=== PATIENT | male | born 1990 | race Caucasian/White ===

== ENCOUNTER → 2017-01-13 | Day surgery (SDC) | payer OTHER ==
[2017-01-13 09:15] LABS: CREATININE 0.7 mg/dL (0.7-1.2); POTASSIUM 4.1 mmol/L (3.5-5.1)
== END | disposition home or self-care (01) ==
LOC: FAS 08:41
PROVIDERS: Surgery
DX: K92.1 Melena (principal); J30.9 Allergic rhinitis, unspecified; G89.29 Other chronic pain; I10 Essential (primary) hypertension; R56.9 Unspecified convulsions; F17.210 Nicotine dependence, cigarettes, uncomplicated
CPT/HCPCS: 36415; 80048; J2704

== ENCOUNTER 2021-02-04 07:38 | Emergency (ER) | payer OTHER ==
[2021-02-04] MEDS ORDERED: IBUPROFEN800 MG PO (08:03)
[2021-02-04] MEDS ORDERED: PENICILLIN V P500 MG PO (08:03)
== END 2021-02-04 08:40 | disposition home or self-care (01) ==
LOC: FER 07:38
DX: K04.7 Periapical abscess without sinus (principal); K03.81 Cracked tooth
CPT/HCPCS: 99283; J1885; Q0163

== ENCOUNTER 2021-03-09 15:44 | Emergency (ER) | payer OTHER ==
[~2021-03-09 15:44] MED LIST: IBUPROFEN800 MG PO; PENICILLIN V P500 MG PO
[2021-03-09] MEDS ORDERED: HYDROCODON-ACE1 EAC2 PO (17:45)
== END 2021-03-09 18:08 | disposition left against medical advice (07) ==
LOC: FER 15:44
DX: S02.832A Fracture of medial orbital wall, left side, initial encounter for closed fracture (principal); S02.2XXA Fracture of nasal bones, initial encounter for closed fracture; H54.7 Unspecified visual loss; Y04.2XXA Assault by strike against or bumped into by another person, initial encounter; Y92.410 Unspecified street and highway as the place of occurrence of the external cause; Z23 Encounter for immunization
CPT/HCPCS: 70486; 90471; 90715; J1885

== ENCOUNTER 2021-03-22 10:01 | Inpatient (IN) | payer OTHER ==
[~2021-03-22] VITALS: Ht 190.5 cm; Wt 117.3 kg
[~2021-03-22 10:01] MED LIST changes: +HYDROCODON-ACE1 EAC2 PO
[2021-03-22 10:46] LABS: BASOPHIL 0.3 % (0-2); EOSINOPHIL 1.2 % (0-5); HCT 43.2 % (42.0-52.0); HGB 15.8 g/dl (13.2-18.0); MCH 31.9 pg (25.0-31.0); MCHC 36.6 g/dL (32.0-36.0); MCV 87.3 fL (78.0-100.0); MONOCYTE 11.1 % (0-12); MPV 10.3 fL (6.0-9.5); NEUTROPHIL 75.2 % (41-80); NRBC 0; PLT 270 K/uL (150-400); RBC 4.95 M/uL (4.70-6.00); RDW 12.5 % (11.5-14.0); WBC 11.7 K/uL (4.0-10.5)
[2021-03-22 11:02] LABS: BILIRUBIN NEGATIVE (NEGATIVE); BLOOD TRACE-INTACT Ery/uL (NEGATIVE); CLARITY CLEAR (CLEAR); COLOR YELLOW (YELLOW); GLUCOSE (U) NORMAL (NORMAL); LEUKOCYTES NEGATIVE Leu/uL (NEGATIVE); NITRITE NEGATIVE (NEGATIVE); PROTEIN NEGATIVE (NEGATIVE); UROBILINOGEN 0.2 mg/dL (0.2-1.0); pH 5.5 (5.0-9.0)
[2021-03-22 11:05] LABS: ALBUMIN 4.4 g/dL (3.4-5.0); BILIRUBIN - TOTAL 0.6 mg/dL (0.2-1.0); BUN/CREAT RATIO (CALC) 14.6 RATIO; CREATININE 3.28 mg/dL (0.67-1.17); GLOBULIN (CALCULATION) 3.9 g/dL; POTASSIUM 3.9 mmol/L (3.5-5.1); TOTAL PROTEIN 8.3 g/dL (6.4-8.2)
[2021-03-22 11:14] LABS: URINARY RBC RARE
[2021-03-22 11:52] LABS: CORONAVIRUS 2019 SARS-COV-2 NEGATIVE (NEGATIVE); INFLUENZA A NAA NEGATIVE (NEGATIVE)
[2021-03-22] MEDS ORDERED: DEPAKOTE ER250 MG PO (15:58)
[2021-03-22 16:35] LABS: MAGNESIUM 2.6 mg/dL (1.8-2.4); PHOSPHORUS 3.9 mg/dL (2.6-4.7)
[2021-03-22 17:26] LABS: URINE CREATININE 140.61 mg/dL (29.00-226.00); URINE TOTAL PROTEIN-RANDOM 19.3 mg/dL (<11.9)
[2021-03-23 05:37] LABS: BASOPHIL 0.3 % (0-2); EOSINOPHIL 2.3 % (0-5); HCT 35.8 % (42.0-52.0); HGB 12.8 g/dl (13.2-18.0); LYMPHOCYTE 17.4 % (15-48); MCH 31.8 pg (25.0-31.0); MCHC 35.8 g/dL (32.0-36.0); MCV 89.1 fL (78.0-100.0); MONOCYTE 11.7 % (0-12); MPV 10.4 fL (6.0-9.5); NRBC 0; PLT 207 K/uL (150-400); RBC 4.02 M/uL (4.70-6.00); RDW 12.5 % (11.5-14.0); WBC 9.4 K/uL (4.0-10.5)
[2021-03-23 05:52] LABS: BUN/CREAT RATIO (CALC) 13.8 RATIO; CREATININE 2.25 mg/dL (0.67-1.17)
[2021-03-23 10:42] LABS: IRON % SATURATION 28.9 %SAT (20-50)
--- NOTE | 2021-03-23 10:46 | NUR ---
[facility] CALLED AT 0810 - PATIENT HAVING A SEIZURE, LAST 5 MIN. PATIENT WAS SUCTIONED. SEIZURE PADS WERE ALREADY IN PLACE. PATIENT WAS VERY LETHARGIC, DIAPHRADIC, RIDGED, FOAMING TO THE MOUTH. PATIENT WAS GIVEN ATIVAN 1MG @ 0833 AND 0841 [facility] CALLED @ 1034, SUCTION, PATIENT EVERY RIDGED AND LETHARGIC, ATIVAN GIVEN AT 1036 PATIENT TO BE TRANSFERED TO TCU 205
[2021-03-23 11:07] LABS: ALBUMIN 3.6 g/dL (3.4-5.0); BILIRUBIN - TOTAL 0.6 mg/dL (0.2-1.0); BUN/CREAT RATIO (CALC) 14.5 RATIO; CREATININE 1.86 mg/dL (0.67-1.17); DEPAKENE/VALPROIC ACID 73.7 ug/mL (50.0-100.0); GLOBULIN (CALCULATION) 3.2 g/dL; MAGNESIUM 2.1 mg/dL (1.8-2.4); PHOSPHORUS 2.7 mg/dL (2.6-4.7); POTASSIUM 3.6 mmol/L (3.5-5.1); TOTAL PROTEIN 6.8 g/dL (6.4-8.2)
[2021-03-23 11:12] LABS: HCT 36.2 % (42.0-52.0); HGB 12.9 g/dl (13.2-18.0); MCH 31.7 pg (25.0-31.0); MCHC 35.6 g/dL (32.0-36.0); MCV 88.9 fL (78.0-100.0); MPV 10.8 fL (6.0-9.5); RBC 4.07 M/uL (4.70-6.00); RDW 12.5 % (11.5-14.0); WBC 9.4 K/uL (4.0-10.5)
--- NOTE | 2021-03-23 14:42 | NUR ---
MD AND RN AT BEDSIDE AFTER CALLING OUT FOR HELP. 1MG OF ATIVAN GIVEN PER MD ORDER. PT VITAL SIGNS STABLE. WILL CONTINUE TO MONITOR
[2021-03-24 05:54] LABS: BASOPHIL 0.6 % (0-2); EOSINOPHIL 3.7 % (0-5); HCT 33.7 % (42.0-52.0); LYMPHOCYTE 25.6 % (15-48); MCH 32.2 pg (25.0-31.0); MCHC 35.6 g/dL (32.0-36.0); MCV 90.3 fL (78.0-100.0); MPV 10.6 fL (6.0-9.5); NRBC 0; PLT 202 K/uL (150-400); RBC 3.73 M/uL (4.70-6.00); RDW 12.5 % (11.5-14.0); WBC 6.8 K/uL (4.0-10.5)
[2021-03-24 07:17] LABS: ALBUMIN 3.1 g/dL (3.4-5.0); BILIRUBIN - TOTAL 0.5 mg/dL (0.2-1.0); BUN/CREAT RATIO (CALC) 12.2 RATIO; CREATININE 1.39 mg/dL (0.67-1.17); DEPAKENE/VALPROIC ACID 82.5 ug/mL (50.0-100.0); GLOBULIN (CALCULATION) 2.7 g/dL; MAGNESIUM 1.9 mg/dL (1.8-2.4); PHOSPHORUS 2.6 mg/dL (2.6-4.7); POTASSIUM 3.9 mmol/L (3.5-5.1); TOTAL PROTEIN 5.8 g/dL (6.4-8.2)
[2021-03-24 13:25] LABS: BILIRUBIN NEGATIVE (NEGATIVE); BLOOD NEGATIVE Ery/uL (NEGATIVE); CLARITY CLEAR (CLEAR); COLOR YELLOW (YELLOW); GLUCOSE (U) NORMAL (NORMAL); LEUKOCYTES NEGATIVE Leu/uL (NEGATIVE); NITRITE NEGATIVE (NEGATIVE); PROTEIN NEGATIVE (NEGATIVE); UROBILINOGEN 0.2 mg/dL (0.2-1.0)
--- NOTE | 2021-03-24 16:08 | NUR ---
03/24/21 Mr. Sorto shares a subsidized rent apartment with his girlfriend, Ro Quiroga. They are supported by the girlfriend's child support and foodstamps. Ms. Quiroga works at times. - Mr. Sorto does not take his medications as prescribed. He reports the pills to be difficult to swallow. Therefore he smokes marijuana opposed to taking the prescribed medications. Mr. Sorto reports his neurologist to beaware of his marijuana use. Mr. Sorto requested information re: SSD. He has not worked the 40 quarters required for SSD eligibility. Mr. 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 He was referred to [employer] to apply for SSI.
--- NOTE | 2021-03-24 18:38 | NUR ---
NOTIFIED OF BLOOD PRESSURE 175/107 AND RN RECHECK OF 154/95 MAP 110 HR 88, NO PRN MED ORDERED. NO NEW ORDERS AT THIS TIME
[2021-03-25 05:57] LABS: BASOPHIL 0.5 % (0-2); EOSINOPHIL 3.9 % (0-5); HCT 33.1 % (42.0-52.0); HGB 11.7 g/dl (13.2-18.0); LYMPHOCYTE 32.3 % (15-48); MCH 31.9 pg (25.0-31.0); MCHC 35.3 g/dL (32.0-36.0); MCV 90.2 fL (78.0-100.0); MONOCYTE 9.5 % (0-12); MPV 10.7 fL (6.0-9.5); NEUTROPHIL 53.7 % (41-80); NRBC 0; PLT 195 K/uL (150-400); RBC 3.67 M/uL (4.70-6.00); RDW 12.3 % (11.5-14.0); WBC 7.5 K/uL (4.0-10.5)
[2021-03-25 06:29] LABS: ALBUMIN 3.2 g/dL (3.4-5.0); BILIRUBIN - TOTAL 0.4 mg/dL (0.2-1.0); BUN/CREAT RATIO (CALC) 11.7 RATIO; CREATININE 1.03 mg/dL (0.67-1.17); GLOBULIN (CALCULATION) 2.9 g/dL; POTASSIUM 3.7 mmol/L (3.5-5.1); TOTAL PROTEIN 6.1 g/dL (6.4-8.2)
--- NOTE | 2021-03-25 09:54 | NUR ---
PT HAS BEEN SIEZURE FREE FOR OVER 24 HOURS
[2021-03-25] MEDS ORDERED: NORVASC5 MG PO (10:31)
[2021-03-25] MEDS ORDERED: DEPAKOTE ER250 MG PO (10:31)
== END 2021-03-25 12:20 | disposition home or self-care (01) | DRG 682 ==
LOC: FER 10:01 → FMS 15:03 → FTCU 18:31
PROVIDERS: Emergency Medicine; Internal Medicine; ADMIT Internal Medicine
DX: N17.9 Acute kidney failure, unspecified (principal); K85.90 Acute pancreatitis without necrosis or infection, unspecified; K92.0 Hematemesis; Z53.8 Procedure and treatment not carried out for other reasons; K52.9 Noninfective gastroenteritis and colitis, unspecified; Z20.822 Contact with and (suspected) exposure to COVID-19; G40.409 Other generalized epilepsy and epileptic syndromes, not intractable, without status epilepticus; E86.0 Dehydration; I10 Essential (primary) hypertension; T39.395A Adverse effect of other nonsteroidal anti-inflammatory drugs [NSAID], initial encounter; N10 Acute pyelonephritis; F12.90 Cannabis use, unspecified, uncomplicated; S02.2XXD Fracture of nasal bones, subsequent encounter for fracture with routine healing; Z91.14 Patient's other noncompliance with medication regimen
CPT/HCPCS: 36415; 70450; 70553; 76705; 80048; 80053; 80164; 81001; 82140; 82150; 82570; 82607; 83540; 83550; 83605; 83690; 83735; 84100; 84145; 84156; 84300; 85025; 87339; C9113; G0378; J0330; J0780; J2060; J2250; J2270; J2405; J7030; U0002

== ENCOUNTER 2021-06-20 16:31 | Emergency (ER) | payer OTHER ==
[~2021-06-20 16:31] MED LIST changes: +DEPAKOTE ER250 MG PO; +NORVASC5 MG PO
[2021-06-20] MEDS ORDERED: NAPROXEN500 MG PO (18:35)
== END 2021-06-20 19:04 | disposition home or self-care (01) ==
LOC: FER 16:31
DX: S93.492A Sprain of other ligament of left ankle, initial encounter (principal); I10 Essential (primary) hypertension; W10.9XXA Fall (on) (from) unspecified stairs and steps, initial encounter; Y92.009 Unspecified place in unspecified non-institutional (private) residence as the place of occurrence of the external cause
CPT/HCPCS: 73610; 73630

== ENCOUNTER 2021-11-14 07:07 | Emergency (ER) | payer OTHER ==
[~2021-11-14 07:07] MED LIST changes: +NAPROXEN500 MG PO
[2021-11-14 07:33] LABS: BASOPHIL 0.2 % (0-2); EOSINOPHIL 0 % (0-5); HCT 47.3 % (42.0-52.0); LYMPHOCYTE 5.2 % (15-48); MCH 31.7 pg (25.0-31.0); MCHC 35.9 g/dL (32.0-36.0); MCV 88.2 fL (78.0-100.0); MONOCYTE 5.1 % (0-12); MPV 10.7 fL (6.0-9.5); NEUTROPHIL 88.9 % (41-80); NRBC 0; PLT 298 K/uL (150-400); RBC 5.36 M/uL (4.70-6.00); RDW 13.2 % (11.5-14.0); WBC 21.6 K/uL (4.0-10.5)
[2021-11-14 07:42] LABS: BILIRUBIN NEGATIVE (NEGATIVE); BLOOD 2+ Ery/uL (NEGATIVE); CLARITY CLEAR (CLEAR); COLOR YELLOW (YELLOW); GLUCOSE (U) NORMAL (NORMAL); LEUKOCYTES NEGATIVE Leu/uL (NEGATIVE); NITRITE NEGATIVE (NEGATIVE); PROTEIN 2+ mg/dL (NEGATIVE); SPECIFIC GRAVITY >=1.030 (1.001-1.030); UROBILINOGEN 0.2 mg/dL (0.2-1.0); pH 5.5 (5.0-9.0)
[2021-11-14 07:46] LABS: ECSTASY (MDMA) NEGATIVE (NEGATIVE); MARIJUANA (THC) POSITIVE (NEGATIVE); METHADONE NEGATIVE (NEGATIVE)
[2021-11-14 07:47] LABS: AMPHETAMINES NEGATIVE (NEGATIVE); BARBITURATES NEGATIVE (NEGATIVE); OPIATES NEGATIVE (NEGATIVE); OXYCODONE NEGATIVE (NEGATIVE)
[2021-11-14 07:54] LABS: ALBUMIN 5.3 g/dL (3.4-5.0); ALKALINE PHOSHATASE 62 U/L (46-116); ALT 75 U/L (16-63); AST 53 U/L (15-37); BILIRUBIN - TOTAL 0.8 mg/dL (0.2-1.0); BUN 29 mg/dL (7-18); BUN/CREAT RATIO (CALC) 12.4 RATIO; CHLORIDE 97 mmol/L (98-107); CO2 (BICARBONATE) 24 mmol/L (21-32); CREATININE 2.33 mg/dL (0.67-1.17); DEPAKENE/VALPROIC ACID <3.0 ug/mL (50.0-100.0); GLOBULIN (CALCULATION) 3.7 g/dL; GLUCOSE 147 mg/dL (74-106); LIPASE 73 U/L (73-393); POTASSIUM 3.8 mmol/L (3.5-5.1)
[2021-11-14 08:09] LABS: BACTERIA TRACE
[2021-11-14] MEDS ORDERED: PHENERGAN25 M1 PO (09:18)
[2021-11-14] MEDS ORDERED: ONDANSETRON ODT4 MG PO (09:18)
[2021-11-14] MEDS ORDERED: NORCO 5-325 TA1 EACH PO (10:08)
== END 2021-11-14 11:10 | disposition home or self-care (01) ==
LOC: FER 07:07
PROVIDERS: Internal Medicine
DX: A04.9 Bacterial intestinal infection, unspecified (principal); G40.909 Epilepsy, unspecified, not intractable, without status epilepticus; Z79.899 Other long term (current) drug therapy
CPT/HCPCS: 36415; 80053; 80164; 80305; 81001; 83690; 84145; 85025; J2270; J2405; J2550; J7030

== ENCOUNTER 2022-03-02 14:39 | Emergency (ER) | payer OTHER ==
[~2022-03-02 14:39] MED LIST changes: +NORCO 5-325 TA1 EACH PO; +ONDANSETRON ODT4 MG PO; +PHENERGAN25 M1 PO
== END 2022-03-02 15:35 | disposition home or self-care (01) ==
LOC: FER 14:39
DX: S43.402A Unspecified sprain of left shoulder joint, initial encounter (principal); W07.XXXA Fall from chair, initial encounter; Z28.310 Unvaccinated for COVID-19
CPT/HCPCS: 73030